=== PATIENT | female | born 1990 | race Hispanic/Latino ===

== ENCOUNTER 2017-05-21 12:24 | Emergency (ER) | payer SELFPAY ==
[2017-05-21 12:49] VITALS: BP 123/77; PULSE 63; TEMP 97.8; O2SAT 99
[2017-05-21 13:06] VITALS: RESP 18
[2017-05-21] MEDS ORDERED: Alum-Mag Hydrox-Simethicone Susp (30 mL) PO STA (13:09)
[2017-05-21] MEDS ORDERED: Atrop/Hyosc/Scopal/PB Elixir (120 ml) PO STA (13:09)
--- NOTE | 2017-05-21 13:18 | ED PDOC ---
Arrival/HPI - General Chief Complaint: Chest Pain Time Seen by Provider: 05/21/17 13:08 Historian: Patient - History of Present Illness Narrative History of Present Illness (Text): 05/21/17 13:00 A 26 year old female, with no significant past medical history, presents to the emergency department complaining of intermittent chest pain for few months, which worsened today. Patient reports pain only occurs throughout the day when eating or drinking fluids, and when she is sitting. No specific food necessarily. Patient describes pain as "tight" and located at center at chest, radiating to under breast. She has not smoked for approximately a year. Patient mentions she has family history of diabetes. Patient notes she experience frequent headaches occassionally but denies of any cough. No PMD Time/Duration: > month (few months) Symptom Onset: Gradual Symptom Course: Unchanged Past Medical History - Provider Review Nursing Documentation Reviewed: Yes - Infectious Disease Hx of Infectious Diseases: None - Psychiatric Hx Substance Use: No Family/Social History - Physician Review Nursing Documentation Reviewed: Yes Family/Social History: Diabetes Smoking Status: Never Smoked Hx Alcohol Use: Yes Frequency of alcohol use: Socially Hx Substance Use: No Allergies/Home Meds Allergies/Adverse Reactions: Allergies No Known Allergies Allergy (Verified 05/21/17 12:49) Review of Systems - Physician Review All systems were reviewed & negative as marked: Yes - Review of Systems Respiratory: absent: Cough Cardiovascular: Chest Pain Neurological: absent: Headache Physical Exam Vital Signs Reviewed: Yes Vital Signs Temp Pulse Resp BP Pulse Ox 05/21/17 13:04 97.8 F 63 18 123/77 99 05/21/17 12:46 97.8 F 63 16 123/77 99 Temperature: Afebrile Blood Pressure: Normal Pulse: Regular Respiratory Rate: Normal Appearance: Positive for: Well-Appearing Pain Distress: None Mental Status: Positive for: Alert and Oriented X 3 - Systems Exam Head: Present: Atraumatic, Normocephalic Pupils: Present: PERRL Extroacular Muscles: Present: EOMI Conjunctiva: Present: Normal Mouth: Present: Moist Mucous Membranes Neck: Present: Normal Range of Motion Respiratory/Chest: Present: Clear to Auscultation, Good Air Exchange. No: Respiratory Distress, Accessory Muscle Use Cardiovascular: Present: Regular Rate and Rhythm, Normal S1, S2. No: Murmurs Abdomen: Present: Normal Bowel Sounds. No: Tenderness, Distention, Peritoneal Signs Back: Present: Normal Inspection Upper Extremity: Present: Normal Inspection. No: Cyanosis, Edema Lower Extremity: Present: Normal Inspection. No: Edema Neurological: Present: GCS=15, CN II-XII Intact, Speech Normal Skin: Present: Warm, Dry, Normal Color. No: Rashes Psychiatric: Present: Alert, Oriented x 3, Normal Insight, Normal Concentration Medical Decision Making ED Course and Treatment: 05/21/17 13:05 Impression: 26 year old female with chest pain. No acute findings on physical exam. Plan: -- Maalox -- Elixir -- Lidocaine -- Reassess and disposition Progress Notes: EKG: Ordered, reviewed, and independently interpreted the EKG. Rate : 67 BPM Rhythm : NSR Interpretation : No ST-segment elevations or depressions, no T-wave inversions, normal intervals. Comparison : No previous EKG for comparison. Reassessment Condition: Re-examined, Unchanged - EKG Interpretation EKG Interpretation (Text): 05/21/17 19:46 NSR at 67 BPM,nstttw changes,no ectopy Interpreted by ED Physician: Yes Type: 12 lead EKG - Medication Orders Current Medication Orders: Discontinued Medications Al Hydrox/Mg Hydrox/Simethicone (Maalox Plus 30 Ml) 30 ml PO STAT STA Stop: 05/21/17 13:10 Last Admin: 05/21/17 13:34 Dose: 30 ml Belladonna/Phenobarbital ( Elixir) 5 ml PO STAT STA Stop: 05/21/17 13:10 Last Admin: 05/21/17 13:34 Dose: 5 ml Lidocaine HCl (Lidocaine 2% Viscous) 15 ml MM STAT STA Stop: 05/21/17 13:09 Last Admin: 05/21/17 13:34 Dose: 15 ml - Scribe Statement The provider has reviewed the documentation as recorded by the Mack Grant Provider Scribe Attestation: All medical record entries made by the Scribe were at my direction and personally dictated by me. I have reviewed the chart and agree that the record accurately reflects my personal performance of the history, physical exam, medical decision making, and the department course for this patient. I have also personally directed, reviewed, and agree with the discharge instructions and disposition. Disposition/Present on Arrival - Present on Arrival Any Indicators Present on Arrival: No History of DVT/PE: No History of Uncontrolled Diabetes: No Urinary Catheter: No History of Decub. Ulcer: No History Surgical Site Infection Following: None - Disposition Have Diagnosis and Disposition been Completed?: Yes Diagnosis: GERD (gastroesophageal reflux disease) Disposition: HOME/ ROUTINE Disposition Time: 19:47 Condition: GOOD Discharge Instructions (ExitCare): Diet for Ulcers and Gastritis (GEN), Gastroesophageal Reflux Disease (ED) Print Language: MACEDONIAN Additional Instructions: Take protonix as prescribed for next 2 weeks.If sx persist follow up with GI for poss upper endoscopy to r/o ulcers Prescriptions: Pantoprazole Sodium [Protonix] 40 mg PO DAILY #14 ect Referrals: [facility] [place] [Outside] - Follow up with primary Forms: [facility] (Portuguese), WORK NOTE
--- NOTE | 2017-05-21 20:43 | CARD ---
APPROVED REPORT EKG Measurement Heart [id number] <Conclusion> Normal sinus rhythm with sinus arrhythmia Nonspecific T wave abnormality Abnormal ECG
== END 2017-05-21 13:55 | disposition home or self-care (01) ==
LOC: ED 12:24
DX: K21.9 Gastro-esophageal reflux disease without esophagitis (principal)